=== PATIENT | male | born 1985 | race American Indian/Alaskan Native ===

== ENCOUNTER → 2016-12-11 | Outpatient (CLI) | payer OTHER ==
--- NOTE | 2016-12-11 16:51 | XR ---
Left wrist HISTORY: Left wrist pain 4 views of the left wrist No comparisons Bone mineralization, joint spaces and alignment are maintained. IMPRESSION: No fracture or dislocation. No significant arthropathy change.
== END | disposition home or self-care (01) ==
LOC: RADXRMAIN 16:07
PROVIDERS: ATTEND Family Medicine
DX: M25.532 Pain in left wrist (principal)

== ENCOUNTER 2017-03-27 07:28 | Emergency (ER) | payer OTHER ==
[2017-03-27] MEDS ORDERED: IPRATROPIUM-ALBUTEROL 3 ML NEB INHALATION STA (08:13)
--- NOTE | 2017-03-27 08:15 | ED ---
SOB HPI - General Chief Complaint: Shortness of Breath Stated Complaint: Asthma Time Seen by Provider: 03/27/17 08:08 Source: patient, RN notes reviewed Mode of arrival: ambulatory Limitations: no limitations - History of Present Illness Initial Comments: Patient is a 32-year-old male presents to the emergency room for evaluation shortness of breath. Patient has a history of asthma. Patient states he has breathing treatments and rescue inhaler at home. Patient states he has been having on and off increasing shortness of breath for the past week. Patient states he called his primary care provider and was told to come to the emergency room. Patient denies fevers or chills. Patient states he has been coughing up green mucus for the past few days. Patient states his rescue inhaler and breathing treatment have helped him for a short time and the symptoms returned again. Patient denies ear pain, throat pain, chest pain. Patient denies abdominal pain. Patient denies nausea or vomiting. Patient denies smoking. Patient states symptoms worsened the morning. - Related Data Home Medications Medication Instructions Recorded Confirmed Albuterol Nebulized [Ventolin 1 inh INHALATION RT-Q6H PRN 06/04/16 03/27/17 Nebulized] Loratadine 10 mg PO DAILY 06/04/16 03/27/17 Montelukast [Singulair] 10 mg PO DAILY 06/04/16 03/27/17 Albuterol Inhaler [Ventolin Hfa 2 puff INHALATION RT-Q4H PRN 03/27/17 03/27/17 Inhaler] Flunisolide [Aerospan] 1 puff INHALATION RT-BID 03/27/17 03/27/17 Previous Rx's Medication Instructions Recorded Azithromycin [Zithromax Z-pack] 250 mg PO DIRECTED #6 tab 03/27/17 predniSONE 50 mg PO DAILY #5 tab 03/27/17 Allergies Allergy/AdvReac Type Severity Reaction Status Date / Time No Known Allergies Allergy Verified 03/27/17 07:57 Review of Systems ROS Statement: Those systems with pertinent positive or pertinent negative responses have been documented in the HPI. ROS Other: All systems not noted in ROS Statement are negative. Past Medical History Past Medical History: Asthma Additional Past Medical History / Comment(s): SEASONAL ALLERGIES History of Any Multi-Drug Resistant Organisms: None Reported Past Surgical History: No Surgical Hx Reported Past Psychological History: No Psychological Hx Reported Smoking Status: Never smoker Past Alcohol Use History: None Reported Past Drug Use History: None Reported General Exam - General Exam Comments Initial Comments: Sitting in exam room, no acute respiratory distress. Limitations: no limitations General appearance: alert, in no apparent distress Head exam: Present: atraumatic, normocephalic, normal inspection Eye exam: Present: normal appearance ENT exam: Present: normal exam Neck exam: Present: normal inspection Respiratory exam: Present: normal lung sounds bilaterally. Absent: respiratory distress Cardiovascular Exam: Present: regular rate, normal rhythm, normal heart sounds Extremities exam: Present: normal inspection Back exam: Present: normal inspection Neurological exam: Present: alert, oriented X3, CN II-XII intact, normal gait Psychiatric exam: Present: normal affect, normal mood Skin exam: Present: warm, dry, intact, normal color. Absent: rash Course Vital Signs 03/27/17 03/27/17 03/27/17 07:31 08:22 08:28 Temperature 97.8 F Pulse Rate 65 64 68 Respiratory 20 Rate Blood Pressure 151/91 O2 Sat by Pulse 96 Oximetry 03/27/17 09:11 Temperature 97.3 F L Pulse Rate 64 Respiratory 18 Rate Blood Pressure 128/87 O2 Sat by Pulse 98 Oximetry Medical Decision Making - Medical Decision Making Patient is a 32-year-old male presents to the emergency room for evaluation. Lung sounds clear. Patient states he is feeling better after breathing treatment. Chest x-ray shows no acute findings. Will treat patient for bronchitis. Advised patient to continue taking his at home medications and to follow-up with his primary care provider for reevaluation in 24-48 hours. Patient states he understands everything that was discussed with him. Return parameters discussed. Case discussed with Dr. Yu. - Radiology Data Radiology results: report reviewed, image reviewed Disposition Clinical Impression: Bronchitis Disposition: HOME SELF-CARE Condition: Good Instructions: Acute Bronchitis (ED) Additional Instructions: Take medications as directed. Continue using at home inhaler and breathing treatments as directed. Please follow up with primary care provider in 1-2 days. If any new symptom arises or symptoms worsen, return to ER as soon as possible. Prescriptions: Azithromycin [Zithromax Z-pack] 250 mg PO DIRECTED #6 tab predniSONE 50 mg PO DAILY #5 tab Referrals: Nahid Tavarez MD [Primary Care Provider] - 1-2 days Time of Disposition: 09:05
--- NOTE | 2017-03-27 08:42 | XR ---
EXAMINATION TYPE: XR chest 2V DATE OF EXAM: 03/27/2017 COMPARISON: Chest x-ray September 27, 2014 HISTORY: History of asthma presents with wheezing and shortness of breath per patient, chest pain per order. TECHNIQUE: Frontal and lateral views of the chest are obtained. FINDINGS: There is no focal air space opacity, pleural effusion, or pneumothorax seen. The cardiac silhouette size is within normal limits. The osseous structures are intact. IMPRESSION: No acute cardiopulmonary process. No significant change from prior.
[2017-03-27 09:12] VITALS: BP 128/87; PULSE 64; RESP 18; TEMP 97.3
== END 2017-03-27 09:12 | disposition home or self-care (01) ==
LOC: EC 07:28
DX: J45.909 Unspecified asthma, uncomplicated (principal); Z79.51 Long term (current) use of inhaled steroids; Z79.899 Other long term (current) drug therapy
CPT/HCPCS: 71020; 94640; 99285

== ENCOUNTER 2018-01-01 21:03 | Emergency (ER) | payer OTHER ==
[2018-01-01 21:12] VITALS: RESP 18
[2018-01-01] MEDS ORDERED: KETOROLAC 60 MG/2 ML VIAL IM STA (22:03)
--- NOTE | 2018-01-01 22:18 | XR ---
EXAMINATION TYPE: XR KUB DATE OF EXAM: 01/01/2018 COMPARISON: NONE HISTORY: Pain TECHNIQUE: 2 views FINDINGS: Bowel gas pattern is normal. There is no sign of intestinal obstruction or pneumoperitoneum . Fecal pattern is normal. Lung bases are clear. There are no pathologic calcifications over the kidn eys. IMPRESSION: Nonacute abdomen.
--- NOTE | 2018-01-01 22:20 | XR ---
EXAMINATION TYPE: XR lumbar spine 2 or 3V DATE OF EXAM: 01/01/2018 COMPARISON: NONE HISTORY: Right-sided back pain TECHNIQUE: 5 views FINDINGS: Vertebra have fairly normal alignment. There is a few millimeter anterior subluxation of L5 in relation to S1. There is bilateral L5 spondylolysis. Sacroiliac joints are intact. There is no co mpression fracture. IMPRESSION: Spondylolysis of L5 with a minimal first-degree L5-S1 spondylolisthesis.
--- NOTE | 2018-01-01 22:41 | ED ---
Back Pain HPI - General Chief Complaint: Back Pain/Injury Stated Complaint: back pain Time Seen by Provider: 01/01/18 21:35 Source: patient, RN notes reviewed Limitations: no limitations - History of Present Illness Initial Comments: 32-year-old male presents emergency Department complaining of right-sided back pain. Patient states pain started over the last couple days saw PCP was started on some muscle relaxer. Patient states that has not helped. Patient states it hurts more with twisting and bending denies any abdominal pain. Denies nausea under denies any bowel bladder incontinence or retention. Denies any saddle anesthesias or lower external paresthesias. Patient states this started after being at his daughter's gymnastic class. He has no history of back pain. - Related Data Home Medications Medication Instructions Recorded Confirmed Albuterol Nebulized [Ventolin 1 inh INHALATION RT-Q6H PRN 06/04/16 01/01/18 Nebulized] Loratadine 10 mg PO DAILY 06/04/16 01/01/18 Montelukast [Singulair] 10 mg PO DAILY 06/04/16 01/01/18 Albuterol Inhaler [Ventolin Hfa 2 puff INHALATION RT-Q4H PRN 03/27/17 01/01/18 Inhaler] Flunisolide [Aerospan] 1 puff INHALATION RT-BID 03/27/17 01/01/18 Beclomethasone Dipropionate [Qvar 2 puff INHALATION BID 01/01/18 01/01/18 80 mcg] Ipratropium/Albuterol Sulfate 2 puff INHALATION QID 01/01/18 01/01/18 [Combivent Respimat Inhaler] Methocarbamol [Robaxin] 500 - 1,000 mg PO Q6H PRN 01/01/18 01/01/18 Triamcinolone 0.025% Cream 1 applic TOPICAL BID PRN 01/01/18 01/01/18 [Kenalog 0.025% Cream] buPROPion HCL [Wellbutrin SR] 100 mg PO BID 01/01/18 01/01/18 Previous Rx's Medication Instructions Recorded Acetaminophen-Codeine 300-30mg 1 tab PO Q4H PRN #20 tablet 01/01/18 [Tylenol #3] Ibuprofen [Motrin] 600 mg PO Q8HR PRN #30 tab 01/01/18 Allergies Allergy/AdvReac Type Severity Reaction Status Date / Time No Known Allergies Allergy Verified 01/01/18 21:52 Review of Systems ROS Statement: Those systems with pertinent positive or pertinent negative responses have been documented in the HPI. ROS Other: All systems not noted in ROS Statement are negative. Past Medical History Past Medical History: Asthma Additional Past Medical History / Comment(s): SEASONAL ALLERGIES History of Any Multi-Drug Resistant Organisms: None Reported Past Surgical History: No Surgical Hx Reported Past Psychological History: No Psychological Hx Reported Smoking Status: Never smoker Past Alcohol Use History: None Reported Past Drug Use History: None Reported General Exam Limitations: no limitations General appearance: alert, in no apparent distress Head exam: Present: atraumatic, normocephalic, normal inspection Neck exam: Present: normal inspection, full ROM. Absent: tenderness, meningismus, lymphadenopathy Respiratory exam: Present: normal lung sounds bilaterally. Absent: respiratory distress, wheezes, rales, rhonchi, stridor Cardiovascular Exam: Present: regular rate, normal rhythm, normal heart sounds. Absent: systolic murmur, diastolic murmur, rubs, gallop, clicks GI/Abdominal exam: Present: soft, normal bowel sounds. Absent: distended, tenderness, guarding, rebound, rigid Extremities exam: Present: normal inspection, full ROM, normal capillary refill. Absent: tenderness, pedal edema, joint swelling, calf tenderness Back exam: Present: normal inspection, full ROM, tenderness, paraspinal tenderness. Absent: CVA tenderness (L), vertebral tenderness Neurological exam: Present: alert, oriented X3, CN II-XII intact, reflexes normal. Absent: motor sensory deficit Course Vital Signs 01/01/18 21:10 Temperature 97.9 F Pulse Rate 86 Respiratory 18 Rate Blood Pressure 168/97 O2 Sat by Pulse 97 Oximetry - Reevaluation(s) Reevaluation #1: 01/01/18 22:44 Patient was reevaluated. Patient up-to-date on x-ray results. Patient states he feels 100% better after Toradol. Medical Decision Making - Medical Decision Making 32-year-old male presented For Low Back Pain. Patient Feels Improved after Toradol. X-Rays Were Reviewed. He Shouldn't Most Likely Is a Lumbar Strain. Patient Has Normal Lower Extremity Strength Equal Pedal Pulses. She Has No Abdominal Pain. Patient Be Discharged with Anti-Inflammatories and Pain Medication. Disposition Clinical Impression: Strain of lumbar region Disposition: HOME SELF-CARE Condition: Stable Instructions: Acute Low Back Pain (ED) Additional Instructions: Please return to the Emergency Department if symptoms worsen or any other concerns. Prescriptions: Acetaminophen-Codeine 300-30mg [Tylenol #3] 1 tab PO Q4H PRN #20 tablet PRN Reason: pain Ibuprofen [Motrin] 600 mg PO Q8HR PRN #30 tab PRN Reason: Pain Referrals: Nahid Tavarez MD [Primary Care Provider] - 1-2 days Time of Disposition: 22:41
[2018-01-01 22:46] VITALS: BP 130/56; PULSE 70; TEMP 98.2
== END 2018-01-01 22:46 | disposition home or self-care (01) ==
LOC: EC 21:03
DX: S39.012A Strain of muscle, fascia and tendon of lower back, initial encounter (principal); J45.909 Unspecified asthma, uncomplicated; Z79.51 Long term (current) use of inhaled steroids; Z79.899 Other long term (current) drug therapy
CPT/HCPCS: 72100; 74018; 99283; 96372; J1885

== ENCOUNTER 2020-04-07 04:58 | Emergency (ER) | payer OTHER ==
[2020-04-07 05:02] VITALS: RESP 18
[2020-04-07] MEDS ORDERED: ALBUTEROL NEBULIZED 2.5 MG/3 ML INHALATION STA (05:19)
[2020-04-07] MEDS ORDERED: IPRATROPIUM-ALBUTEROL 3 ML NEB INHALATION STA (05:19)
[2020-04-07] MEDS ORDERED: predniSONE 20 MG TAB PO STA (05:19)
--- NOTE | 2020-04-07 05:21 | ED ---
SOB HPI - General Chief Complaint: Shortness of Breath Stated Complaint: asthma Time Seen by Provider: 04/07/20 05:01 Source: patient Mode of arrival: ambulatory Limitations: no limitations - History of Present Illness Initial Comments: This patient is a 35-year-old man with history of asthma who presents with complaint that it feels like his asthma is flaring up. The patient states that around 7 he started noticing he was wheezing and was feeling a little short of breath. He was also having a little bit of nonproductive cough. He states the symptoms are identical to previous asthma exacerbations. Patient not sure what triggered this one but states he did cut grass around 1 PM. Patient denies fever or chills. No chest pain. No sputum production. MD Complaint: shortness of breath, cough, "asthma attack" Onset/Timin -: hour(s) Consistency: constant Improves With: bronchodilators Worsens With: nothing Known History Of: asthma Associated Symptoms: cough Treatments Prior to Arrival: bronchodilator - Related Data Home Oxygen Therapy: No Home Medications Medication Instructions Recorded Confirmed Albuterol Nebulized [Ventolin 1 inh INHALATION RT-Q6H PRN 06/04/16 01/01/18 Nebulized] Loratadine 10 mg PO DAILY 06/04/16 01/01/18 Montelukast [Singulair] 10 mg PO DAILY 06/04/16 01/01/18 Albuterol Inhaler (Mhu) [Ventolin 2 puff INHALATION RT-Q4H PRN 03/27/17 01/01/18 Hfa Inhaler (Mhu)] Flunisolide [Aerospan] 1 puff INHALATION RT-BID 03/27/17 01/01/18 Beclomethasone Dipropionate [Qvar 2 puff INHALATION BID 01/01/18 01/01/18 80 mcg] Ipratropium/Albuterol Sulfate 2 puff INHALATION QID 01/01/18 01/01/18 [Combivent Respimat Inhaler] Methocarbamol [Robaxin] 500 - 1,000 mg PO Q6H PRN 01/01/18 01/01/18 Triamcinolone 0.025% Cream 1 applic TOPICAL BID PRN 01/01/18 01/01/18 [Kenalog 0.025% Cream] buPROPion HCL [Wellbutrin SR] 100 mg PO BID 01/01/18 01/01/18 Previous Rx's Medication Instructions Recorded Acetaminophen-Codeine 300-30mg 1 tab PO Q4H PRN #20 tablet 01/01/18 [Tylenol #3] Ibuprofen [Motrin] 600 mg PO Q8HR PRN #30 tab 01/01/18 predniSONE 60 mg PO DAILY #30 tab 04/07/20 Allergies Allergy/AdvReac Type Severity Reaction Status Date / Time No Known Allergies Allergy Verified 04/07/20 04:59 Review of Systems ROS Statement: Those systems with pertinent positive or pertinent negative responses have been documented in the HPI. ROS Other: All systems not noted in ROS Statement are negative. Constitutional: Denies: fever, chills Eyes: Reports: eye discharge. Denies: eye pain ENT: Denies: throat pain, congestion Respiratory: Reports: cough, dyspnea, wheezes. Denies: hemoptysis Cardiovascular: Denies: chest pain, palpitations, orthopnea, edema, syncope Gastrointestinal: Denies: abdominal pain, vomiting, diarrhea Musculoskeletal: Denies: back pain Skin: Denies: rash Neurological: Denies: headache, weakness Past Medical History Past Medical History: Asthma Additional Past Medical History / Comment(s): SEASONAL ALLERGIES History of Any Multi-Drug Resistant Organisms: None Reported Past Surgical History: No Surgical Hx Reported Past Psychological History: No Psychological Hx Reported Smoking Status: Never smoker Past Alcohol Use History: None Reported Past Drug Use History: None Reported General Exam Limitations: no limitations General appearance: alert, in no apparent distress Head exam: Present: atraumatic, normocephalic Eye exam: Present: normal appearance. Absent: scleral icterus, conjunctival injection ENT exam: Present: normal oropharynx Respiratory exam: Present: wheezes. Absent: respiratory distress, rales, rhonchi, stridor, accessory muscle use, decreased breath sounds Cardiovascular Exam: Present: regular rate, normal rhythm, normal heart sounds. Absent: systolic murmur, diastolic murmur, rubs, gallop GI/Abdominal exam: Present: soft. Absent: distended, tenderness, guarding, rebound, rigid Neurological exam: Present: alert Skin exam: Present: warm, dry, intact, normal color. Absent: rash Course Vital Signs 04/07/20 04/07/20 04/07/20 04:59 05:40 05:47 Temperature 97.7 F Pulse Rate 78 78 77 Respiratory 18 Rate Blood Pressure 148/99 O2 Sat by Pulse 98 Oximetry 04/07/20 06:11 Temperature Pulse Rate 97 Respiratory Rate Blood Pressure O2 Sat by Pulse 99 Oximetry Disposition Clinical Impression: Asthma exacerbation Disposition: HOME SELF-CARE Condition: Good Instructions (If sedation given, give patient instructions): Asthma (ED) Prescriptions: predniSONE 60 mg PO DAILY #30 tab Is patient prescribed a controlled substance at d/c from ED?: No Referrals: Nahid Tavarez MD [Primary Care Provider] - 1-2 days
[2020-04-07 06:31] VITALS: BP 131/98; PULSE 85; TEMP 97.4
== END 2020-04-07 06:31 | disposition home or self-care (01) ==
LOC: EC 04:58
DX: J45.901 Unspecified asthma with (acute) exacerbation (principal); Z79.51 Long term (current) use of inhaled steroids; Z79.899 Other long term (current) drug therapy; Z91.09 Other allergy status, other than to drugs and biological substances
CPT/HCPCS: 99284; 94640; J7512

== ENCOUNTER → 2024-11-07 | Outpatient (CLI) | payer OTHER ==
[2024-11-07 17:48] LABS: Aspergillus fumagatus IgE 6.45 kU/L; Cladosporian herbarum IgE 3.06 kU/L; Clam IgE <0.10 kU/L; Cockroach IgE 0.93 kU/L; Codfish IgE <0.10 kU/L; Dermato. farinae IgE >100.00 kU/L; Dog Dander IgE 3.16 kU/L; Egg White IgE <0.10 kU/L; Peanut IgE 0.66 kU/L; Red Top (Bentgrass) IgE >100.00 kU/L; Scallop IgE 1.37 kU/L; Shrimp IgE 4.11 kU/L; Soybean IgE 1.02 kU/L; Walnut IgE (Food) 0.59 kU/L
== END | disposition home or self-care (01) ==
LOC: LABWHC1 09:31
PROVIDERS: ATTEND Internal Medicine Critical Care Medicine
DX: J45.50 Severe persistent asthma, uncomplicated (principal)
CPT/HCPCS: 36415; 82785; 85008; 86003